=== PATIENT | female | born 1970 | race Caucasian/White ===

== ENCOUNTER → 2017-02-11 | Outpatient (CLI) | payer BC ==
[~2017-02-11] MED LIST: AZIT-21 PO; CEFP500T4 PO
--- NOTE | 2017-02-12 08:57 | Diagnostic Imaging Report ---
Bilateral screening mammogram The current study was also evaluated with a Computer Aided Detection (CAD) system. INDICATION: Screening. No current complaints stated on the questionnaire. COMPARISON: 01/23/16 FINDINGS: The breasts are composed of heterogeneously dense parenchyma which may decrease mammographic sensitivity. There is no mass, architectural distortion or suspicious cluster of calcification identified. Allowing for technique and positional differences, no suspicious change is seen. IMPRESSION: Dense breasts with no definite change. ACR BI-RADS Category 2: Benign findings. Result letter will be mailed to the patient. Note: At least 10% of breast cancer is not imaged by mammography. Dictated by: Dictated on workstation # [id number]
== END ==
LOC: RAD 11:15
PROVIDERS: ATTEND Obstetrics & Gynecology
DX: Z12.31 Encounter for screening mammogram for malignant neoplasm of breast (principal)
CPT/HCPCS: 77067

== ENCOUNTER → 2018-02-12 | Outpatient (CLI) | payer BC ==
--- NOTE | 2018-02-12 12:52 | Diagnostic Imaging Report ---
INDICATION: Routine screening. COMPARISON: 02/11/2017 and 01/23/2016. TECHNIQUE: 2D and 3D bilateral screening mammography was performed with CAD. FINDINGS: Both breasts remain heterogeneously dense, limiting the sensitivity of mammography. No mass or malignant appearing microcalcifications are seen. The axillae are unremarkable. IMPRESSION: No mammographic features suspicious for malignancy are identified. ACR BI-RADS Category 1: Negative. Result letter will be mailed to the patient. Note: At least 10% of breast cancer is not imaged by mammography. Dictated by: Dictated on workstation # [id number]
== END ==
LOC: RAD 11:05
PROVIDERS: ATTEND Obstetrics & Gynecology
DX: Z12.31 Encounter for screening mammogram for malignant neoplasm of breast (principal)
CPT/HCPCS: 77067

== ENCOUNTER → 2019-03-25 | Outpatient (CLI) | payer BC ==
--- NOTE | 2019-03-26 12:32 | Diagnostic Imaging Report ---
INDICATION: Routine screening. COMPARISON: Comparison is made with prior mammograms from 02/12/2018 and 02/11/2017. TECHNIQUE: 2-D and 3-D bilateral screening mammography was performed. The current study was also evaluated with a Computer Aided Detection (CAD) system. 3-D tomosynthesis was also performed and reviewed. FINDINGS: Both breasts remain heterogeneously dense, limiting the sensitivity of mammography. The parenchymal pattern is stable. No mass or malignant appearing microcalcifications are seen. The axillae are unremarkable. IMPRESSION: No mammographic features suspicious for malignancy are identified. ACR BI-RADS Category 1: Negative. Result letter will be mailed to the patient. Note: At least 10% of breast cancer is not imaged by mammography. Dictated by: Dictated on workstation # [id number]
== END ==
LOC: RAD 14:27
PROVIDERS: ATTEND Nurse Practitioner
DX: Z12.31 Encounter for screening mammogram for malignant neoplasm of breast (principal)
CPT/HCPCS: 77067

== ENCOUNTER → 2020-05-25 | Outpatient (CLI) | payer BC ==
--- NOTE | 2020-05-25 10:04 | Diagnostic Imaging Report ---
INDICATION: Routine screening. Comparison is made with prior mammogram 03/25/2019 and 02/12/2018. 2-D and 3-D bilateral screening mammography was performed with CAD. Both breasts are heterogeneously dense, limiting the sensitivity of mammography. The parenchymal pattern is stable. No discrete mass or malignant appearing microcalcifications are seen. Axillae are unremarkable. IMPRESSION: BI-RADS Category 1 No mammographic features suspicious for malignancy are identified. ACR BI-RADS Category 1: Negative. Result letter will be mailed to the patient. Note: At least 10% of breast cancer is not imaged by mammography. Dictated by: Dictated on workstation # [id number]
== END ==
LOC: RAD 07:45
PROVIDERS: ATTEND Nurse Practitioner
DX: Z12.31 Encounter for screening mammogram for malignant neoplasm of breast (principal)
CPT/HCPCS: 77063; 77067

== ENCOUNTER 2021-03-08 17:16 | Emergency (ER) | payer BC ==
[~2021-03-08] VITALS: Ht 167 cm; Wt 63.0 kg
[2021-03-08 17:50] LABS: BASOPHILS # (AUTO) 0.1 10^3/uL (0.0-0.1); BASOPHILS % (AUTO) 1 % (0-10); EOSINOPHILS # (AUTO) 0.1 10^3/uL (0.0-0.3); EOSINOPHILS % (AUTO) 2 % (0-10); HEMATOCRIT 41 % (35-52); LYMPHOCYTES % (AUTO) 38 % (12-44); MEAN CORPUSCULAR HEMOGLOBIN 33 pg (25-34); MEAN CORPUSCULAR HGB CONC 34 g/dL (32-36); MEAN CORPUSCULAR VOLUME 98 fL (80-99); MEAN PLATELET VOLUME 10.1 fL (9.0-12.2); MONOCYTES # (AUTO) 0.5 X 10^3 (0.0-1.0); MONOCYTES % (AUTO) 7 % (0-12); NEUTROPHILS # (AUTO) 4.2 X 10^3 (1.8-7.8); NEUTROPHILS % (AUTO) 53 % (42-75); PLATELET COUNT 237 10^3/uL (130-400)
--- NOTE | 2021-03-08 17:51 | ED GU-Female ---
General Chief Complaint: Abdominal/GI Problems Stated Complaint: STOMACH PAIN Nursing Triage Note: ARRIVED VIA AMB WITH COMPLAINTS OF LEFT SIDED FLANK PAIN STARTING THIS AM. DENIES N/V/D Source: patient Exam Limitations: no limitations History of Present Illness Date Seen by Provider: Mar 08, 2021 Time Seen by Provider: 17:49 Initial Comments To ER with severe left flank pain this began mildly this morning and got progressively worse. History of kidney stones and this feels similar. Timing/Duration: just prior to arrival Severity/Quality: moderate Location: left flank Radiation: none Activities at Onset: none Prior Genitourinary Problems: none Associated Symptoms: denies symptoms Allergies and Home Medications Allergies Coded Allergies: Penicillins (Verified Allergy, Unknown, 12/09/12) Home Medications Cefuroxime Axetil 250 Mg Tablet, 250 MG PO BID Prescribed by: MAY GALLARDO on 03/08/211915 Ketorolac Tromethamine 10 Mg Tablet, 10 MG PO TID Prescribed by: MAY GALLARDO on 03/08/211914 Oxycodone HCl/Acetaminophen 1 Each Tablet, 1 TAB PO Q4H PRN for PAIN-MODERATE Prescribed by: MAY GALLARDO on 03/08/211914 Tamsulosin HCl 0.4 Mg Cap, 0.4 MG PO DAILY Prescribed by: MAY GALLARDO on 03/08/211914 Patient Home Medication List Home Medication List Reviewed: Yes Review of Systems Review of Systems Constitutional: see HPI EENTM: see HPI Respiratory: no symptoms reported Cardiovascular: no symptoms reported Genitourinary: see HPI Musculoskeletal: no symptoms reported Skin: no symptoms reported Psychiatric/Neurological: No Symptoms Reported Endocrine: No Symptoms Reported Past Tcjgzuk-Wykarp-Dpfltc Hx Patient Social History Substance use?: No Past Medical History Reproductive Disorders: No Kidney Stones Physical Exam Vital Signs Vital Signs - First Documented 03/08/21 17:25 Temp 36.8 Pulse 54 Resp 16 B/P (MAP) 143/85 (104) Pulse Ox 97 O2 Delivery Room Air Capillary Refill : Less Than 3 Seconds Height, Weight, BMI Height: '" Weight: lbs. oz. kg; 22.00 BMI Method:Stated General Appearance: WD/WN, moderate distress HEENT: PERRL/EOMI, normal ENT inspection Respiratory: no respiratory distress, no accessory muscle use Gastrointestinal: normal bowel sounds, soft Back: CVA tenderness (L) Extremities: normal range of motion, non-tender Neurologic/Psychiatric: alert, normal mood/affect, oriented x 3 Skin: normal color, warm/dry Progress/Results/Core Measures Suspected Sepsis SIRS Temperature: Pulse: 54 Respiratory Rate: 16 Laboratory Tests 03/08/21 17:30: White Blood Count 8.0 Blood Pressure 143 /85 Mean: 104 Laboratory Tests 03/08/21 17:30: Creatinine 0.86, Platelet Count 237 Results/Orders Lab Results Laboratory Tests Test 03/08/21 17:30 03/08/21 17:35 Range/Units White Blood Count 8.0 4.3-11.0 10^3/uL Red Blood Count 4.19 3.80-5.11 10^6/uL Hemoglobin 14.0 11.5-16.0 g/dL Hematocrit 41 35-52 % Mean Corpuscular Volume 98 80-99 fL Mean Corpuscular Hemoglobin 33 25-34 pg Mean Corpuscular Hemoglobin Concent 34 32-36 g/dL Red Cell Distribution Width 11.9 10.0-14.5 % Platelet Count 237 130-400 10^3/uL Mean Platelet Volume 10.1 9.0-12.2 fL Immature Granulocyte % (Auto) 0 % Neutrophils (%) (Auto) 53 42-75 % Lymphocytes (%) (Auto) 38 12-44 % Monocytes (%) (Auto) 7 0-12 % Eosinophils (%) (Auto) 2 0-10 % Basophils (%) (Auto) 1 0-10 % Neutrophils # (Auto) 4.2 1.8-7.8 X 10^3 Lymphocytes # (Auto) 3.0 1.0-4.0 X 10^3 Monocytes # (Auto) 0.5 0.0-1.0 X 10^3 Eosinophils # (Auto) 0.1 0.0-0.3 10^3/uL Basophils # (Auto) 0.1 0.0-0.1 10^3/uL Immature Granulocyte # (Auto) 0.0 0.0-0.1 10^3/uL Sodium Level 141 135-145 MMOL/L Potassium Level 4.3 3.6-5.0 MMOL/L Chloride Level 106 98-107 MMOL/L Carbon Dioxide Level 25 21-32 MMOL/L Anion Gap 10 5-14 MMOL/L Blood Urea Nitrogen 19 H 7-18 MG/DL Creatinine 0.86 0.60-1.30 MG/DL Estimat Glomerular Filtration Rate > 60 BUN/Creatinine Ratio 22 Glucose Level 97 70-105 MG/DL Calcium Level 9.2 8.5-10.1 MG/DL Urine Color YELLOW Urine Clarity CLEAR Urine pH 7.5 5-9 Urine Specific [place] 1.020 1.016-1.022 Urine Protein NEGATIVE NEGATIVE Urine Glucose (UA) NEGATIVE NEGATIVE Urine Ketones 1+ H NEGATIVE Urine Nitrite NEGATIVE NEGATIVE Urine Bilirubin NEGATIVE NEGATIVE Urine Urobilinogen 0.2 < = 1.0 MG/DL Urine Leukocyte Esterase NEGATIVE NEGATIVE Urine RBC (Auto) 3+ H NEGATIVE Urine RBC 50-100 H /HPF Urine WBC NONE /HPF Urine Crystals NONE /LPF Urine Bacteria NEGATIVE /HPF Urine Casts NONE /LPF Urine Mucus NEGATIVE /LPF Urine Culture Indicated NO My Orders Orders - MAY GALLARDO APRN Abdomen/Kub 1view (03/08/21 17:35) Ua Culture If Indicated (03/08/21 17:35) Ed Iv/Invasive Line Start (03/08/21 17:35) Cbc With Automated Diff (03/08/21 17:35) Basic Metabolic Panel (03/08/21 17:35) Lactated Ringers (Lr 1000 Ml Iv Solution (03/08/21 18:00) Fentanyl Inj (Sublimaze Injection) (03/08/21 18:00) Ketorolac Injection (Toradol Injection) (03/08/21 18:00) Ct Abd/Pelvis Wo(Kidney Stone) (03/08/21 17:51) Hydromorphone Injection (Dilaudid Inject (03/08/21 19:15) Medications Given in ED Current Medications Medications Dose Ordered Sig/Francisco Route Start Time Stop Time Status Last Admin Dose Admin Fentanyl Citrate 50 mcg ONCE ONCE IVP 03/08/21 18:00 03/08/21 18:01 DC 03/08/21 17:54 50 MCG Hydromorphone HCl 0.5 mg ONCE ONCE IV 03/08/21 19:15 03/08/21 19:16 DC 03/08/21 19:17 0.5 MG Ketorolac Tromethamine 15 mg ONCE ONCE IVP 03/08/21 18:00 03/08/21 18:01 DC 03/08/21 17:55 15 MG Vital Signs/I&O 03/08/21 17:25 Temp 36.8 Pulse 54 Resp 16 B/P (MAP) 143/85 (104) Pulse Ox 97 O2 Delivery Room Air Capillary Refill : Less Than 3 Seconds Blood Pressure Mean: 104 Diagnostic Imaging Diagonstic Imaging: CT Comments NAME: ESME ESPINOSA REC#: [id number] PT STATUS: REG ER : 1970 PHYSICIAN: MAY GALLARDO APRN ADMIT DATE: 03/08/21/ER Draft Date of Exam:03/08/21 CT ABD/PELVIS WO(KIDNEY STONE) Clinical indications: Patient with nausea and left flank pain. Patient has history of stones. Exam: CT exam of the abdomen and pelvis is performed without IV or oral contrast using stone protocol. Coronal and sagittal reformatted images were created. Auto Exposure Controls were utilized during the CT exam to meet ALARA standards for radiation dose reduction. Comparisons: CT scan of the abdomen and pelvis performed with contrast dated 07/15/2016. Findings: Again seen is a solid soft tissue nodule in the medial right lung base region which currently measures 2.2 cm x 1.9 cm compared to the prior study at 2.3 cm x 2.1 cm. There is mild bibasilar atelectasis. There are degenerative spurs involving the lower lumbar spine. There is left curvature of the lower lumbar spine. Again seen is a large single gallstone which has increased in size. This gallstone measures 2.5 cm in greatest axial dimension compared to the prior study measured at 1.9 cm. There is no other stone seen. The gallbladder is mildly fluid filled. There is no gallbladder wall thickening or pericholecystic fluid. There is no intrahepatic or extrahepatic ductal dilation. The liver, spleen, pancreas and adrenal glands are unremarkable. The right kidney is low-lying near the pelvis and is abnormally rotated. It is better seen on the prior study. There is no hydronephrosis or mass seen. There is a nonobstructive 1 to 2 mm stone involving the upper portion of the left kidney. This is not seen on the prior study. There is interval development of a 4 mm stone within the proximal left ureter in the region of the left UPJ. There is mild to moderate left hydronephrosis. There are no other urinary tract stones seen, as visualized. The bladder is fluid-filled and otherwise unremarkable. Uterus and adnexal structures show no significant abnormality. There is multiple phleboliths in the pelvis. There is no intestinal obstruction. The appendix is unremarkable. The cecum is low-lying in the upper pelvis region. There is no intra-abdominal free air or free fluid. The extra-abdominal and extra-pelvis soft tissue structures are unremarkable. Impression: 1: There is interval development of a 4 mm stone in the proximal left ureter near the UPJ. There is mild to moderate left hydronephrosis. There is another nonobstructive stone involving the left upper kidney region. 2: Cholelithiasis with increased size of a single gallstone noted. There is no CT evidence of cholecystitis. 3: Stable size of the soft tissue nodule in the medial right lung base. 4: The remainder of this exam shows no significant interval change compared to the prior study of comparison. Dictated on workstation # [id number] Dict: 03/08/211828 Trans: 03/08/[address] [facility] [id number] Interpreted by: KHARI GRACIA MD Electronically signed by: Departure Communication (Admissions) NAME: ESME ESPINOSA [facility] REC#: [id number] PT STATUS: REG ER : 1970 PHYSICIAN: MAY GALLARDO APRN ADMIT DATE: 03/08/21/ER Draft Date of Exam:03/08/21 CT ABD/PELVIS WO(KIDNEY STONE) Clinical indications: Patient with nausea and left flank pain. Patient has history of stones. Exam: CT exam of the abdomen and pelvis is performed without IV or oral contrast using stone protocol. Coronal and sagittal reformatted images were created. Auto Exposure Controls were utilized during the CT exam to meet ALARA standards for radiation dose reduction. Comparisons: CT scan of the abdomen and pelvis performed with contrast dated 07/15/2016. Findings: Again seen is a solid soft tissue nodule in the medial right lung base region which currently measures 2.2 cm x 1.9 cm compared to the prior study at 2.3 cm x 2.1 cm. There is mild bibasilar atelectasis. There are degenerative spurs involving the lower lumbar spine. There is left curvature of the lower lumbar spine. Again seen is a large single gallstone which has increased in size. This gallstone measures 2.5 cm in greatest axial dimension compared to the prior study measured at 1.9 cm. There is no other stone seen. The gallbladder is mildly fluid filled. There is no gallbladder wall thickening or pericholecystic fluid. There is no intrahepatic or extrahepatic ductal dilation. The liver, spleen, pancreas and adrenal glands are unremarkable. The right kidney is low-lying near the pelvis and is abnormally rotated. It is better seen on the prior study. There is no hydronephrosis or mass seen. There is a nonobstructive 1 to 2 mm stone involving the upper portion of the left kidney. This is not seen on the prior study. There is interval development of a 4 mm stone within the proximal left ureter in the region of the left UPJ. There is mild to moderate left hydronephrosis. There are no other urinary tract stones seen, as visualized. The bladder is fluid-filled and otherwise unremarkable. Uterus and adnexal structures show no significant abnormality. There is multiple phleboliths in the pelvis. There is no intestinal obstruction. The appendix is unremarkable. The cecum is low-lying in the upper pelvis region. There is no intra-abdominal free air or free fluid. The extra-abdominal and extra-pelvis soft tissue structures are unremarkable. Impression: 1: There is interval development of a 4 mm stone in the proximal left ureter near the UPJ. There is mild to moderate left hydronephrosis. There is another nonobstructive stone involving the left upper kidney region. 2: Cholelithiasis with increased size of a single gallstone noted. There is no CT evidence of cholecystitis. 3: Stable size of the soft tissue nodule in the medial right lung base. 4: The remainder of this exam shows no significant interval change compared to the prior study of comparison. Dictated on workstation # [id number] Dict: 03/08/21 1829 Trans: 03/08/[address] [facility] [id number] Interpreted by: KHARI GRACIA MD Electronically signed by: Impression Primary Impression: Left ureteral stone Disposition: 01 HOME, SELF-CARE Condition: Stable Departure-Patient Inst. Decision time for Depature: 18:00 Referrals: NO,LOCAL PHYSICIAN (PCP/Family) Primary Care Physician Patient Instructions: Kidney Stone, Adult ED Add. Discharge Instructions: 1. Antibiotics pain medication as directed follow-up with Dr. Mosher. Call tomorrow to make an appointment to be seen. All discharge instructions reviewed with patient and/or family. Voiced understanding. Scripts Cefuroxime Axetil (Cefuroxime) 250 Mg Tablet 250 MG PO BID, #10 TAB Prov: MAY GALLARDO APRN 03/08/21 Oxycodone HCl/Acetaminophen (Percocet 5-325 mg Tablet) 1 Each Tablet 1 TAB PO Q4H PRN for PAIN-MODERATE MDD 6 for 7 Days, #20 TAB Prov: MAY GALLARDO APRN 03/08/21 Ketorolac Tromethamine (Ketorolac Tromethamine) 10 Mg Tablet 10 MG PO TID, #9 TAB Prov: MAY GALLARDO APRN 03/08/21 Tamsulosin HCl (Flomax) 0.4 Mg Cap 0.4 MG PO DAILY, #14 CAP Prov: MAY GALLARDO APRN 03/08/21 Work/School Note: Work Release Form Date Seen in the Emergency Department: Mar 08, 2021 Return to Work: Mar 11, 2021 Copy Copies To 1: KATIE MOSHER MD, PETER J APRN Mar 08, 2021 17:51
[2021-03-08 17:52] LABS: CHLORIDE 106 MMOL/L (98-107); POTASSIUM 4.3 MMOL/L (3.6-5.0); SODIUM 141 MMOL/L (135-145)
[2021-03-08 17:54] LABS: CALCIUM 9.2 MG/DL (8.5-10.1); GLUCOSE 97 MG/DL (70-105)
[2021-03-08 17:56] LABS: CARBON DIOXIDE 25 MMOL/L (21-32)
[2021-03-08 17:58] LABS: CREATININE SERUM 0.86 MG/DL (0.60-1.30); GFR ESTIMATED > 60
[2021-03-08 17:59] LABS: BUN/CREATININE RATIO 22
[2021-03-08] MEDS ORDERED: KETOROLAC 30 MG/ML VIAL IVP ONE (18:00)
[2021-03-08] MEDS ORDERED: LACTATED RINGERS 1,000 ML IV SCH (18:00)
[2021-03-08] MEDS ORDERED: fentaNYL INJ 100 MCG/2 ML AMP IVP ONE (18:00)
--- NOTE | 2021-03-08 18:33 | Diagnostic Imaging Report ---
EXAM: Abdomen/KUB 1 view. INDICATION: Left flank pain. COMPARISON: Abdominal radiograph 03/26/2007. FINDINGS: Large amount of stool throughout the ascending and transverse colon. Nonspecific small bowel gas pattern. No suspicious radiopaque densities. IMPRESSION: 1. No acute radiographic findings in the abdomen. 2. Large amount of stool throughout the ascending and transverse colon. Dictated by: Dictated on workstation # [id number]
[2021-03-08 18:48] LABS: BILIRUBIN,URINE NEGATIVE (NEGATIVE); CLARITY,URINE CLEAR; COLOR,URINE YELLOW; GLUCOSE, URINE (UA) NEGATIVE (NEGATIVE); KETONES,URINE 1+ (NEGATIVE); LEUKOCYTE ESTERASE ,URINE NEGATIVE (NEGATIVE); NITRITE,URINE NEGATIVE (NEGATIVE); PH,URINE 7.5 (5-9); PROTEIN,URINE NEGATIVE (NEGATIVE)
--- NOTE | 2021-03-08 19:00 | Diagnostic Imaging Report ---
Clinical indications: Patient with nausea and left flank pain. Patient has history of stones. Exam: CT exam of the abdomen and pelvis is performed without IV or oral contrast using stone protocol. Coronal and sagittal reformatted images were created. Auto Exposure Controls were utilized during the CT exam to meet ALARA standards for radiation dose reduction. Comparisons: CT scan of the abdomen and pelvis performed with contrast dated 07/15/2016. Findings: Again seen is a solid soft tissue nodule in the medial right lung base region which currently measures 2.2 cm x 1.9 cm compared to the prior study at 2.3 cm x 2.1 cm. There is mild bibasilar atelectasis. There are degenerative spurs involving the lower lumbar spine. There is left curvature of the lower lumbar spine. Again seen is a large single gallstone which has increased in size. This gallstone measures 2.5 cm in greatest axial dimension compared to the prior study measured at 1.9 cm. There is no other stone seen. The gallbladder is mildly fluid filled. There is no gallbladder wall thickening or pericholecystic fluid. There is no intrahepatic or extrahepatic ductal dilation. The liver, spleen, pancreas and adrenal glands are unremarkable. The right kidney is low-lying near the pelvis and is abnormally rotated. It is better seen on the prior study. There is no hydronephrosis or mass seen. There is a nonobstructive 1 to 2 mm stone involving the upper portion of the left kidney. This is not seen on the prior study. There is interval development of a 4 mm stone within the proximal left ureter in the region of the left UPJ. There is mild to moderate left hydronephrosis. There are no other urinary tract stones seen, as visualized. The bladder is fluid-filled and otherwise unremarkable. Uterus and adnexal structures show no significant abnormality. There is multiple phleboliths in the pelvis. There is no intestinal obstruction. The appendix is unremarkable. The cecum is low-lying in the upper pelvis region. There is no intra-abdominal free air or free fluid. The extra-abdominal and extra-pelvis soft tissue structures are unremarkable. Impression: 1: There is interval development of a 4 mm stone in the proximal left ureter near the UPJ. There is mild to moderate left hydronephrosis. There is another nonobstructive stone involving the left upper kidney region. 2: Cholelithiasis with increased size of a single gallstone noted. There is no CT evidence of cholecystitis. 3: Stable size of the soft tissue nodule in the medial right lung base. 4: The remainder of this exam shows no significant interval change compared to the prior study of comparison. Dictated by: Dictated on workstation # [id number]
[2021-03-08 19:13] LABS: BACTERIA,URINE NEGATIVE /HPF; RBC,URINE 50-100 /HPF
[2021-03-08] MEDS ORDERED: KETO10TA PO (19:15)
[2021-03-08] MEDS ORDERED: HYDROmorphone 2 MG/ML VIAL (DILAUDID) IV ONE (19:15)
[2021-03-08] MEDS ORDERED: OXYC-199 PO (19:15)
[2021-03-08] MEDS ORDERED: TMSL.4C PO (19:15)
[2021-03-08] MEDS ORDERED: CEFU250T80 PO (19:16)
[2021-03-08] MEDS ORDERED: RX-OXYCODONE/APAP 5-325 MG #4 TAB PK PO PRN (20:00)
[2021-03-08] MEDS ORDERED: TAMSULOSIN 0.4 MG (FLOMAX) CAP PO SCH (20:00)
[2021-03-08 20:05] VITALS: BP 106/69
== END 2021-03-08 20:03 | disposition home or self-care (01) ==
LOC: EDUNIT# 17:16 → ER 17:18
DX: N13.2 Hydronephrosis with renal and ureteral calculous obstruction (principal)
CPT/HCPCS: 36415; 74018; 74176; 80048; 81000; 85025

== ENCOUNTER 2021-03-10 13:13 | Emergency (ER) | payer BC ==
[~2021-03-10] VITALS: Ht 167 cm; Wt 63.0 kg
[~2021-03-10 13:13] MED LIST changes: +CEFU250T80 PO; +KETO10TA PO; +OXYC-199 PO; +TMSL.4C PO
[2021-03-10] MEDS ORDERED: HYDROmorphone 2 MG/ML VIAL (DILAUDID) IV ONE (14:15)
[2021-03-10] MEDS ORDERED: KETOROLAC 30 MG/ML VIAL IVP ONE (14:15)
[2021-03-10] MEDS ORDERED: ONDANSETRON 4 MG/2 ML (SDV) Z0FRAN IVP ONE (14:15)
[2021-03-10] MEDS ORDERED: NS IV 1000 ML 1,000 ML IV SCH (14:15)
--- NOTE | 2021-03-10 14:28 | ED General ---
General Stated Complaint: KIDNEY STONES, ALLERGIC TO MEDS Source of Information: Patient Exam Limitations: No Limitations History of Present Illness Date Seen by Provider: Mar 10, 2021 Time Seen by Provider: 14:28 Initial Comments To ER with left flank pain. She was seen here a few days ago diagnosed with a 4 mm stone in the proximal left ureter. Sent home with Percocet which did not alleviate her symptoms. She states that she has been vomiting each time that she takes 1 and unable to keep it down. Timing/Duration: 2-3 Days Severity: Moderate, Severe Associated Systoms: Nausea/Vomiting Allergies and Home Medications Allergies Coded Allergies: Penicillins (Verified Allergy, Unknown, 12/09/12) Home Medications Cefuroxime Axetil 250 Mg Tablet, 250 MG PO BID Prescribed by: MAY GALLARDO on 03/08/211915 Hydrocodone/Acetaminophen 1 Each Tablet, 1-2 TAB PO Q4H PRN for PAIN-MODERATE (5-7) Prescribed by: MAY GALLARDO on 03/10/211818 Ketorolac Tromethamine 10 Mg Tablet, 10 MG PO TID Prescribed by: MAY GALLARDO on 03/08/211914 Ondansetron 8 Mg Tab.rapdis, 8 MG PO Q6H PRN for PAIN-SEVERE (8-10) Prescribed by: MAY GALLARDO on 03/10/211817 Oxycodone HCl/Acetaminophen 1 Each Tablet, 1 TAB PO Q4H PRN for PAIN-MODERATE Prescribed by: MAY GALLARDO on 03/08/211914 Tamsulosin HCl 0.4 Mg Cap, 0.4 MG PO DAILY Prescribed by: MAY GALLARDO on 03/08/211914 Patient Home Medication List Home Medication List Reviewed: Yes Review of Systems Review of Systems Constitutional: see HPI EENTM: see HPI Respiratory: no symptoms reported Cardiovascular: no symptoms reported Genitourinary: no symptoms reported Musculoskeletal: no symptoms reported Skin: no symptoms reported Psychiatric/Neurological: No Symptoms Reported Hematologic/Lymphatic: No Symptoms Reported Immunological/Allergic: no symptoms reported Past Glblcpl-Cnxovp-Wigdsb Hx Past Medical History Reproductive Disorders: No Kidney Stones Physical Exam Vital Signs Capillary Refill : Height, Weight, BMI Height: '" Weight: lbs. oz. kg; 22.00 BMI Method:Stated General Appearance: WD/WN, Mild Distress Eyes: Bilateral Eye Normal Inspection, Bilateral Eye PERRL, Bilateral Eye EOMI Respiratory: No Accessory Muscle Use, No Respiratory Distress Cardiovascular: Regular Rate, Rhythm, Normal Peripheral Pulses Gastrointestinal: Normal Bowel Sounds, Non Tender, Soft Extremity: Normal Capillary Refill, Normal Inspection Neurologic/Psychiatric: Alert, Oriented x3 Progress/Results/Core Measures Suspected Sepsis SIRS Temperature: Pulse: Respiratory Rate: Laboratory Tests 03/10/21 14:50: White Blood Count 10.8 Blood Pressure / Mean: Laboratory Tests 03/10/21 14:50: Creatinine 1.13, Platelet Count 190, Total Bilirubin 0.6 Results/Orders Lab Results Laboratory Tests Test 03/10/21 14:50 Range/Units White Blood Count 10.8 4.3-11.0 10^3/uL Red Blood Count 3.86 3.80-5.11 10^6/uL Hemoglobin 12.8 11.5-16.0 g/dL Hematocrit 38 35-52 % Mean Corpuscular Volume 98 80-99 fL Mean Corpuscular Hemoglobin 33 25-34 pg Mean Corpuscular Hemoglobin Concent 34 32-36 g/dL Red Cell Distribution Width 11.9 10.0-14.5 % Platelet Count 190 130-400 10^3/uL Mean Platelet Volume 10.3 9.0-12.2 fL Immature Granulocyte % (Auto) 2 % Neutrophils (%) (Auto) 74 42-75 % Lymphocytes (%) (Auto) 17 12-44 % Monocytes (%) (Auto) 6 0-12 % Eosinophils (%) (Auto) 1 0-10 % Basophils (%) (Auto) 1 0-10 % Neutrophils # (Auto) 8.0 H 1.8-7.8 10^3/uL Lymphocytes # (Auto) 1.8 1.0-4.0 10^3/uL Monocytes # (Auto) 0.7 0.0-1.0 10^3/uL Eosinophils # (Auto) 0.1 0.0-0.3 10^3/uL Basophils # (Auto) 0.1 0.0-0.1 10^3/uL Immature Granulocyte # (Auto) 0.2 H 0.0-0.1 10^3/uL Sodium Level 139 135-145 MMOL/L Potassium Level 3.7 3.6-5.0 MMOL/L Chloride Level 103 98-107 MMOL/L Carbon Dioxide Level 25 21-32 MMOL/L Anion Gap 11 5-14 MMOL/L Blood Urea Nitrogen 19 H 7-18 MG/DL Creatinine 1.13 0.60-1.30 MG/DL Estimat Glomerular Filtration Rate 51 BUN/Creatinine Ratio 17 Glucose Level 98 70-105 MG/DL Calcium Level 8.9 8.5-10.1 MG/DL Corrected Calcium 9.1 8.5-10.1 MG/DL Total Bilirubin 0.6 0.1-1.0 MG/DL Aspartate Amino Transf (AST/SGOT) 15 5-34 U/L Alanine Aminotransferase (ALT/SGPT) 11 0-55 U/L Alkaline Phosphatase 71 40-136 U/L Total Protein 6.5 6.4-8.2 GM/DL Albumin 3.7 3.2-4.5 GM/DL My Orders Orders - MAY GALLARDO APRN Cbc With Automated Diff (03/10/21 13:54) Comprehensive Metabolic Panel (03/10/21 13:54) Ua Culture If Indicated (03/10/21 13:55) Abdomen/Kub 1view (03/10/21 14:09) Ketorolac Injection (Toradol Injection) (03/10/21 14:15) Ondansetron Injection (Zofran Injectio (03/10/21 14:15) Hydromorphone Injection (Dilaudid Inject (03/10/21 14:15) Ns Iv 1000 Ml (Sodium Chloride 0.9%) (03/10/21 14:15) Hydrocodone/Apap 5/325 Tablet (Lortab 5 (03/10/21 16:15) Lactated Ringers (Lr 1000 Ml Iv Solution (03/10/21 16:45) Lactated Ringers (Lr 1000 Ml Iv Solution (03/10/21 16:36) Rx-Hydrocodone/Apap 5-325 Mg (Rx-Vicodin (03/10/21 18:00) Rx-Ondansetron Po (Rx-Zofran Po) (03/10/21 17:58) Medications Given in ED Current Medications Medications Dose Ordered Sig/Francisco Route Start Time Stop Time Status Last Admin Dose Admin Acetaminophen/ Hydrocodone Bitart 1 ea ONCE ONCE PO 03/10/21 16:15 03/10/21 16:16 DC 03/10/21 16:12 1 EA Hydromorphone HCl 0.5 mg ONCE ONCE IV 03/10/21 14:15 03/10/21 14:16 DC 03/10/21 14:43 0.5 MG Ketorolac Tromethamine 15 mg ONCE ONCE IVP 03/10/21 14:15 03/10/21 14:16 DC 03/10/21 14:42 15 MG Ondansetron HCl 4 mg ONCE ONCE IVP 03/10/21 14:15 03/10/21 14:16 DC 03/10/21 14:42 4 MG Vital Signs/I&O Capillary Refill : Departure Communication (Admissions) 1630-'s pain is well controlled at this time. 1817-Pain is still well controlled. She seems to have tolerated the hydrocodone much better than the Percocet. We will send her home with this plan with return precautions. Impression Primary Impression: Left ureteral stone Disposition: HOME, SELF-CARE Condition: Stable Departure-Patient Inst. Decision time for Depature: 18:00 Referrals: NO,LOCAL PHYSICIAN (PCP/Family) Primary Care Physician Patient Instructions: Kidney Stone, Adult ED Scripts Ondansetron (Ondansetron Odt) 8 Mg Tab.rapdis 8 MG PO Q6H PRN for PAIN-SEVERE (8-10), #10 TAB Prov: MAY GALLARDO APRN 03/10/21 Hydrocodone/Acetaminophen (Hydrocodone-Acetamin 5-325 mg) 1 Each Tablet 1-2 TAB PO Q4H PRN for PAIN-MODERATE (5-7), #20 TAB Prov: MAY GALLARDO APRN 03/10/21 MAY GALLARDO [employer] Mar 10, 2021 14:28
--- NOTE | 2021-03-10 14:48 | Diagnostic Imaging Report ---
REASON FOR EXAM: Left flank pain. COMPARISON: 03/08/2021. TECHNIQUE: Frontal supine view of the abdomen FINDINGS: There is interval decrease in stool burden in the colon with a residual moderate amount of stool remaining. No evidence of small bowel obstruction. No large collections of free intraperitoneal air. Gallstone is again visualized overlying the right upper quadrant. Multiple phleboliths are seen in the pelvis. IMPRESSION: Interval decrease in stool burden with residual moderate amount of stool remaining. Dictated by: Dictated on workstation # [id number]
[2021-03-10 15:00] LABS: BASOPHILS # (AUTO) 0.1 10^3/uL (0.0-0.1); BASOPHILS % (AUTO) 1 % (0-10); EOSINOPHILS # (AUTO) 0.1 10^3/uL (0.0-0.3); EOSINOPHILS % (AUTO) 1 % (0-10); HEMATOCRIT 38 % (35-52); HEMOGLOBIN 12.8 g/dL (11.5-16.0); LYMPHOCYTES # (AUTO) 1.8 10^3/uL (1.0-4.0); LYMPHOCYTES % (AUTO) 17 % (12-44); MEAN CORPUSCULAR HEMOGLOBIN 33 pg (25-34); MEAN CORPUSCULAR HGB CONC 34 g/dL (32-36); MEAN CORPUSCULAR VOLUME 98 fL (80-99); MEAN PLATELET VOLUME 10.3 fL (9.0-12.2); MONOCYTES # (AUTO) 0.7 10^3/uL (0.0-1.0); MONOCYTES % (AUTO) 6 % (0-12); NEUTROPHILS % (AUTO) 74 % (42-75); PLATELET COUNT 190 10^3/uL (130-400); WHITE BLOOD COUNT 10.8 10^3/uL (4.3-11.0)
[2021-03-10 15:06] LABS: ALBUMIN 3.7 GM/DL (3.2-4.5); POTASSIUM 3.7 MMOL/L (3.6-5.0)
[2021-03-10 15:07] LABS: CALCIUM 8.9 MG/DL (8.5-10.1)
[2021-03-10 15:09] LABS: TOTAL PROTEIN 6.5 GM/DL (6.4-8.2)
[2021-03-10 15:10] LABS: BILIRUBIN,TOTAL 0.6 MG/DL (0.1-1.0)
[2021-03-10 15:12] LABS: CREATININE SERUM 1.13 MG/DL (0.60-1.30)
[2021-03-10] MEDS ORDERED: HYDROcodone/APAP 5 MG/325 MG (LORTAB) TAB PO ONE (16:15)
[2021-03-10] MEDS ORDERED: LACTATED RINGERS 1,000 ML IV ONE (16:36)
[2021-03-10] MEDS ORDERED: LACTATED RINGERS 1,000 ML IV SCH (16:45)
[2021-03-10] MEDS ORDERED: RX-ONDANSETRON 4 MG ODT (ZOFRAN) PPK #4 PO STA (17:58)
[2021-03-10] MEDS ORDERED: ONDA8TAB13 PO (18:18)
[2021-03-10] MEDS ORDERED: ACHD5005 PO (18:18)
[2021-03-10 18:36] VITALS: BP 115/71
[2021-03-10 18:36] LABS: BILIRUBIN,URINE NEGATIVE (NEGATIVE); CLARITY,URINE CLOUDY; COLOR,URINE ORANGE; GLUCOSE, URINE (UA) NEGATIVE (NEGATIVE); KETONES,URINE TRACE (NEGATIVE); LEUKOCYTE ESTERASE ,URINE NEGATIVE (NEGATIVE); NITRITE,URINE NEGATIVE (NEGATIVE); PH,URINE 5.5 (5-9); PROTEIN,URINE TRACE (NEGATIVE)
[2021-03-10 18:50] LABS: BACTERIA,URINE FEW /HPF
== END 2021-03-10 18:36 | disposition home or self-care (01) ==
LOC: EDUNIT# 13:13 → ER 13:16
DX: N20.1 Calculus of ureter (principal)
CPT/HCPCS: 36415; 74018; 80053; 81000; 85025

== ENCOUNTER → 2021-03-14 | Outpatient (CLI) | payer BC ==
[~2021-03-14] MED LIST changes: +ACHD5005 PO; +ONDA8TAB13 PO
--- NOTE | 2021-03-14 13:33 | Diagnostic Imaging Report ---
INDICATION: Left ureteral calculus. Compared with a KUB performed 03/10 and correlated with abdominal pelvic CT dated 03/08. Large lamellated gallstone in the right upper quadrant noted. There is an elevated colonic fecal load compatible with constipation. This limits sensitivity for evaluating renal calculus disease. There are multiple pelvic phleboliths, largely unchanged however new calcification in the left lower hemipelvis may reflect interval migration of the previous left ureteral stone at CT that was seen at the top of the iliac crest at today's exam is likely at the level of the distal ureter approaching the UVJ. IMPRESSION: Left ureteral calculus is believed migrated to the distal ureter, colonic constipation and cholelithiasis noted. Dictated by: Dictated on workstation # [id number]
== END ==
LOC: RAD 12:46
PROVIDERS: ATTEND Urology
DX: N20.1 Calculus of ureter (principal)
CPT/HCPCS: 74018

== ENCOUNTER 2021-03-16 05:57 | Outpatient (CLI) | payer BC ==
[~2021-03-16] VITALS: Ht 167 cm; Wt 62.7 kg
[2021-09-19] MEDS ORDERED: L.AC1CAP6 PO (17:27)
[2021-09-19] MEDS ORDERED: MULT-974 PO (17:27)
[2021-09-19] MEDS ORDERED: ASPI-789 PO (17:27)
== END 2021-09-19 17:34 | disposition home or self-care (01) ==
LOC: PREOP 05:57
PROVIDERS: ATTEND Urology
DX: Z01.818 Encounter for other preprocedural examination (principal)

== ENCOUNTER → 2021-07-27 | Outpatient (CLI) | payer BC ==
--- NOTE | 2021-07-27 15:58 | Diagnostic Imaging Report ---
INDICATION: Routine screening. Comparison is made with prior mammogram 05/25/2020 and 03/25/2019. 2-D and 3-D bilateral screening mammography was performed with CAD. Both breasts are heterogeneously dense, limiting the sensitivity of mammography. No mass or malignant-appearing microcalcifications are seen. Axillae are unremarkable. IMPRESSION: BI-RADS Category 1 No mammographic features suspicious for malignancy are identified. ACR BI-RADS Category 1: Negative. Result letter will be mailed to the patient. Note: At least 10% of breast cancer is not imaged by mammography. Dictated by: Dictated on workstation # [id number]
== END ==
LOC: RAD 08:45
PROVIDERS: ATTEND Surgery
DX: Z12.31 Encounter for screening mammogram for malignant neoplasm of breast (principal)
CPT/HCPCS: 77063; 77067

== ENCOUNTER 2021-09-21 09:51 | Day surgery (SDC) | payer BC ==
[~2021-09-21] VITALS: Ht 167 cm; Wt 62.7 kg
[~2021-09-21 09:51] MED LIST changes: +ASPI-789 PO; +L.AC1CAP6 PO; +MULT-974 PO
[2021-09-21] MEDS ORDERED: LACTATED RINGERS 1,000 ML IV STA (09:58)
[2021-09-21] MEDS ORDERED: LIDOCAINE JELLY 2% 6 ML SYRINGE MM PRN (10:00)
[2021-09-21] MEDS ORDERED: LACTATED RINGERS 1,000 ML IV ONE (10:07)
[2021-09-21 10:10] VITALS: BP 107/73
[2021-09-21] MEDS ORDERED: MIDAZOLAM 2 MG/2 ML (VERSED) VIAL ONE (10:14)
[2021-09-21] MEDS ORDERED: PROPOFOL INJECTION 50 ML IV ONE (10:14)
[2021-09-21] MEDS ORDERED: NS IV 500 ML 500 ML IV ONE (10:15)
--- NOTE | 2021-09-21 10:25 | Progress Note-Pre Operative ---
Pre-Operative Progress Note H&P Reviewed The H&P was reviewed, patient examined and no changes noted. Date Seen by Provider: Sep 21, 2021 Time Seen by Provider: 10:00 Date H&P Reviewed: Sep 21, 2021 Time H&P Reviewed: 10:00 Pre-Operative Diagnosis: screening REX Cornejo MD Sep 21, 2021 10:25
--- NOTE | 2021-09-21 10:27 | Discharge Inst-Surgical ---
D/C Lap Instructions-MARISOL Follow Up Activity as tolerated High Fiber Diet 25g or more per day Avoid Alcohol, Caffeine, Spicy [place] and Acid foods. Drink 64 fluid oz or more of fluids per day. Symptoms to Report: Fever over 101 degree F, Nausea/Vomiting If any problems/questions: Contact your physician or go to Emergency Room REX DAMON MD Sep 21, 2021 10:27
[2021-09-21] MEDS ORDERED: ONDANSETRON 4 MG/2 ML (SDV) Z0FRAN IVP PRN (10:30)
[2021-09-21] MEDS ORDERED: ONDANSETRON 4 MG (ZOFRAN) ORAL DISSOLVE TAB PO PRN (10:30)
[2021-09-21 11:01] VITALS: BP 104/59
--- NOTE | 2021-09-21 11:03 | Progress Note-Post Operative ---
Post-Operative Progess Note Surgeon (s)/Chief Orthoptist (s) Surgeon REX DAMON MD Chief Orthoptist: none Pre-Operative Diagnosis screening colo Post-Operative Diagnosis normal colon and rectum Procedure & Operative Findings Date of Procedure 09/21/21 Procedure Performed/Findings colonoscopy Anesthesia Type mac Estimated Blood Loss Estimated blood loss (mL): minimal Specimens/Packing Specimens Removed none REX DAMON MD Sep 21, 2021 11:03
[2021-09-21 11:06] VITALS: BP 97/56
[2021-09-21 11:10] VITALS: BP 95/54
[2021-09-21 11:40] VITALS: BP 99/56
[2021-09-21 12:00] VITALS: BP 99/56
--- NOTE | 2021-09-21 13:19 | Anesthesia-General Post-Op ---
MAC Patient Condition Mental Status/LOC: Same as Preop Cardiovascular: Satisfactory Nausea/Vomiting: Absent Respiratory: Satisfactory Pain: Controlled Complications: Absent Post Op Complications Complications None Follow Up Care/Instructions Patient Instructions None needed. Anesthesiology Discharge Order Discharge Order Patient is doing well, no complaints, stable vital signs, no apparent adverse anesthesia problems. No complications reported per nursing. GAETANO TEJEDA CRNA Sep 21, 2021 13:19
--- NOTE | 2021-09-21 19:21 | OPERATIVE REPORT ---
DATE OF SERVICE: 09/21/2021 PREOPERATIVE DIAGNOSIS: Screening colonoscopy. POSTOPERATIVE DIAGNOSIS: Normal colon and rectum. PROCEDURE: Colonoscopy. SURGEON: Rex Damon MD ANESTHESIA: Monitored anesthesia care. ESTIMATED BLOOD LOSS: Minimal. FINDINGS: Same as postoperative diagnoses. DISPOSITION: The patient tolerated the procedure well. INDICATIONS: The patient is a 50-year-old female referred over to us for screening colonoscopy. She has not had a colonoscopy before in the past. She states that she is otherwise doing well, does not report any major issues with diarrhea nor constipation as well as no red blood per rectum nor any dark tarry stools. She also does not report any family history of colon cancer. DESCRIPTION OF PROCEDURE: The patient was brought to the endoscopy suite, laid in left lateral decubitus position. After adequate IV pain and sedative medications and monitored anesthesia care, a digital rectal examination was performed. No significant hemorrhoids identified. Normal sphincter tone was felt and there were no palpable masses. The endoscope was then intubated into the anus and rectum gently insufflated. The endoscope was then advanced through the valves of [place] of the rectum with no polyps or any neoplasms identified. The endoscope was then advanced through the sigmoid colon where no diverticulosis identified. We then proceeded to remainder of the descending, transverse and ascending colon to the cecum, which were normal. There were no polyps or any neoplasms identified throughout the colon or rectum. The endoscope was then slowly withdrawn while taking a second look and suctioning of residual air with no additional findings. The patient tolerated the procedure well. We will recommend the necessary lifestyle and dietary accommodation including incorporation of high fiber diet with at least 25 grams of fiber daily as well as significant amounts of water to promote soft stools on a daily basis and if she is asymptomatic, she does not need another colonoscopy for another 10 years. Job ID: [id number] DocumentID: [id number] Dictated Date: 09/21/2021 10:58:24 Manager Field Service Date: 09/21/2021 19:20:29 Dictated By: REX DAMON MD
== END 2021-09-21 12:00 | disposition home or self-care (01) ==
LOC: ENDO 09:51
PROVIDERS: ATTEND Surgery
DX: K59.00 Constipation, unspecified (principal); Z80.3 Family history of malignant neoplasm of breast; Z80.1 Family history of malignant neoplasm of trachea, bronchus and lung

== ENCOUNTER 2022-08-07 05:25 | Emergency (ER) | payer BC ==
[~2022-08-07 05:25] MED LIST changes: -ASPI-789 PO; +ASPI1TAB23 PO
--- NOTE | 2022-08-07 06:35 | ED EENT ---
History of Present Illness General Chief Complaint: Dental Problems/Pain Stated Complaint: RT SIDE OF MOUTH PAIN Nursing Triage Note: PT ARRIVAL TO ER VIA PRIVATE VEHICLE FROM HOME WITH COMPLAINT OF FACIAL SWELLING POST DENTAL SURGERY. PT STATES THAT SHE HAD A BONE GRAFT PROCEDURE DONE FRIDAY OF THIS WEEK IN [place]. PATIENT STATES THAT SHE WAS TOLD IT WOULD HAVE MINOR SWELLING AND SOME DISCOMFORT, BUT STATES THAT SHE BELIEVES ITS POSSIBLY INFECTED AND MORE PAINFUL/SWOLLEN THEN IT SHOULD BE. PT TOOK HYDROCODONE AT 0420 THIS AM. (VANNESSA HU) History of Present Illness Date Seen by Provider: Aug 07, 2022 Time Seen by Provider: 06:14 Initial Comments 51 yo female w no pertinent past medical hx presents to ED with chief complaint of right sided facial swelling post dental bone graft. Pt reports that she got a bone graft on her two front teeth on Friday. She had some lip swelling after the procedure but then on friday her swelling started to extend to the right side of her face. Has associated jaw pain, limited jaw movement, nausea, and RAMOS. Pt rates her pain as a 8/10 and has been taking the Z pack, dental rinse, and hydrocodeine as indicated with no relief of sx. Pt says she is on a soft foods diet but it has been difficult to eat. Last ate at 6pm. Reports that she previously got a more extensive dental bone graft back in March with no adverse effects or sx that she is currently experiencing. Denies any ear pain, vomiting, swelling anywhere else, CP, SOB. No other complaints. Location: mouth, facial, dental Prearrival Treatment: prescription meds (VANNESSA HU) Allergies and Home Medications Allergies Coded Allergies: Penicillins (Verified Allergy, Unknown, 12/09/12) acetaminophen (Verified Allergy, Unknown, 03/16/21) oxycodone (Verified Allergy, Unknown, 03/16/21) Patient Home Medication List Home Medication List Reviewed: Yes (VANNESSA HU) Aspirin/Acetaminophen/Caffeine (Excedrin Migraine Caplet) 1 Each Tablet, 2 EACH PO Q6-8HR PRN for Headache, (Reported) Entered as Reported by: AHMET ARMANDO on 09/19/211726 L.acidoph & Paracasei,B.lactis (Probiotic) 1 Each Capsule, 1 EACH PO DAILY, (Reported) Entered as Reported by: AHMET ARMANDO on 09/19/211726 Multivitamin (Multi-Vitamin Daily) 1 Each Tablet, 1 EACH PO, (Reported) Entered as Reported by: AHMET ARMANDO on 09/19/211726 Review of Systems Review of Systems Constitutional: no symptoms reported Eyes: No Symptoms Reported Nose: no symptoms reported Mouth: see HPI, pain, swelling Throat: no symptoms reported Respiratory: no symptoms reported Cardiovascular: no symptoms reported Gastrointestinal: nausea Musculoskeletal: no symptoms reported Skin: no symptoms reported Neurological: No Symptoms Reported Hematologic/Lymphatic: No Symptoms Reported Immunological/Allergic: no symptoms reported (VANNESSA HU) Past Fxjohmb-Fepurf-Mmmtgi Hx Patient Social History Tobacco Use?: No Use of E-Cig and/or Vaping dev: No Substance use?: No Alcohol Use?: No Pt feels they are or have been: No (VANNESSA HU) Immunizations Up To Date Influenza Vaccine Up-to-Date: No; Not Current First/Initial COVID19 Vaccinat: NO (VANNESSA HU) Seasonal Allergies Seasonal Allergies: Yes (VANNESSA HU) Past Medical History Surgeries: Yes (LITHOTRIPSY, C/S X2, EAR SURGERY X2 (CALCIUM BLOCK REMOVALS)) Section Respiratory: No Cardiac: No Neurological: Yes Reproductive Disorders: No Genitourinary: Yes Kidney Stones Gastrointestinal: Yes (CURRENT CONSTIPATION AND STOMACH PAIN) Chronic Constipation Musculoskeletal: No Endocrine: No Cancer: No Psychosocial: No Integumentary: No Blood Disorders: No (VANNESSA HU) Physical Exam Vital Signs Vital Signs - First Documented 08/07/22 05:34 Temp 36.4 Pulse 71 Resp 20 B/P (MAP) 99/68 (78) Pulse Ox 97 O2 Delivery Room Air (CLEMENCIA POLO MD) Height, Weight, BMI Height: '" Weight: lbs. oz. kg; 22.48 BMI Method:Stated General Appearance: WD/WN Eyes: bilateral eye normal inspection, bilateral eye PERRL, bilateral eye EOMI Ears: bilateral ear auricle normal Nose: normal inspection Mouth/Throat: dental tenderness, other (right side maxilary edema, warmth and erythema ) Neck: non-tender, full range of motion, supple, normal inspection Cardiovascular: regular rate, rhythm, no edema, no gallop, no JVD, no murmur Respiratory: chest non-tender, lungs clear, normal breath sounds, no respiratory distress, no accessory muscle use Gastrointestinal: normal bowel sounds, non tender, soft, no organomegaly, no pulsatile mass 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, no motor/sensory deficits, alert, normal mood/affect, oriented x 3 Skin: normal color, warm/dry (VANNESSA HU) Progress/Results/Core Measures Results/Orders Lab Results Laboratory Tests Test 08/07/22 07:30 08/07/22 10:27 Range/Units White Blood Count 7.8 4.3-11.0 10^3/uL Red Blood Count 4.27 3.80-5.11 10^6/uL Hemoglobin 13.7 11.5-16.0 g/dL Hematocrit 39 35-52 % Mean Corpuscular Volume 92 80-99 fL Mean Corpuscular Hemoglobin 32 25-34 pg Mean Corpuscular Hemoglobin Concent 35 32-36 g/dL Red Cell Distribution Width 11.7 10.0-14.5 % Platelet Count 192 130-400 10^3/uL Mean Platelet Volume 9.8 9.0-12.2 fL Immature Granulocyte % (Auto) 0 % Neutrophils (%) (Auto) 63 42-75 % Lymphocytes (%) (Auto) 28 12-44 % Monocytes (%) (Auto) 7 0-12 % Eosinophils (%) (Auto) 1 0-10 % Basophils (%) (Auto) 1 0-10 % Neutrophils # (Auto) 4.9 1.8-7.8 10^3/uL Lymphocytes # (Auto) 2.2 1.0-4.0 10^3/uL Monocytes # (Auto) 0.5 0.0-1.0 10^3/uL Eosinophils # (Auto) 0.1 0.0-0.3 10^3/uL Basophils # (Auto) 0.1 0.0-0.1 10^3/uL Immature Granulocyte # (Auto) 0.0 0.0-0.1 10^3/uL Sodium Level 139 135-145 MMOL/L Potassium Level 3.8 3.6-5.0 MMOL/L Chloride Level 106 98-107 MMOL/L Carbon Dioxide Level 28 21-32 MMOL/L Anion Gap 5 5-14 MMOL/L Blood Urea Nitrogen 16 7-18 MG/DL Creatinine 0.68 0.60-1.30 MG/DL Estimat Glomerular Filtration Rate 105 BUN/Creatinine Ratio 24 Glucose Level 91 70-105 MG/DL Calcium Level 8.5 8.5-10.1 MG/DL C-Reactive Protein High Sensitivity 1.82 H 0.00-0.50 MG/DL Prothrombin Time 12.6 12.2-14.7 SEC INR Comment 0.9 0.8-1.4 Activated Partial Thromboplast Time 33 24-35 SEC Lactic Acid Level 0.57 0.50-2.00 MMOL/L (CLEMENCIA POLO MD) Micro Results Microbiology 08/07/22 Blood Culture - Preliminary, Resulted No growth 08/07/22 Blood Culture - Preliminary, Resulted No growth (CLEMENCIA POLO MD) My Orders Orders - CLEMENCIA POLO MD Basic Metabolic Panel (08/07/22 07:18) Cbc With Automated Diff (08/07/22 07:18) Hs C Reactive Protein (08/07/22 07:18) Ed Iv/Invasive Line Start (08/07/22 07:18) Lactated Ringers (Lr 1000 Ml Iv Solution (08/07/22 07:30) Ondansetron Injection (Zofran Injectio (08/07/22 07:30) Fentanyl Inj (Sublimaze Injection) (08/07/22 07:30) Ct Maxillofacial W Wo (08/07/22 07:19) Iohexol Injection (Omnipaque 350 Mg/Ml 1 (08/07/22 07:45) Received Contrast (Hold Metformin- Contr (08/07/22 07:45) Ns (Ivpb) (Sodium Chloride 0.9% Ivpb Bag (08/07/22 07:45) Sodium Chloride Flush (Catheter Flush Sy (08/07/22 07:45) Fentanyl Inj (Sublimaze Injection) (08/07/22 09:00) Blood Culture (08/07/22 10:18) Protime With Inr (08/07/22 10:18) Partial Thromboplastin Time (08/07/22 10:18) Vital Signs Adult Sepsis Patie Q15M (08/07/22 10:18) Remove Rings In Anticipation O (08/07/22 10:18) Lactic Acid Analyzer (08/07/22 10:18) Clindamycin 900 Mg/50 Ml Ivpb (Cleocin P (08/07/22 10:30) Morphine Injection (Morphine Injection (08/07/22 10:25) (CLEMENCIA POLO MD) Medications Given in ED (CLEMENCIA POLO MD) Vital Signs/I&O (CLEMENCIA OPLO MD) Blood Pressure Mean: 78 Progress Progress Note #1: Time: 07:52 Progress Note Patient was interviewed and examined along with MS 3. I have concerned about the erythema and swelling extending far beyond the surgical site. This is different from the experience she had with her prior graft surgery. I am concerned about infection. Nausea was treated with Zofran and pain was treated with fentanyl. IV fluids are infusing. Labs are being obtained along with CT of the face for further evaluation. Pending results, we may contact the surgeon to discuss further care. Progress Note #2: Time: 10:25 Progress Note Patient has received multiple doses of fentanyl. She is requesting something more for pain. Morphine 5 mg IV was ordered. Labs were relatively unremarkable. CT revealed possible seroma or abscess with associated soft tissue changes. I discussed the situation with Dr. Verdugo. He recommends consulting the local maxillofacial surgeon. He is going to contact Dr. Hale to try to make some type of postoperative arrangement with him. In the meantime, we are drawing blood cultures and lactic acid as she has visibly worsened since arriving. Clindamycin 900 mg IV is being administered for initial antibiotic therapy. She has a penicillin allergy. Progress Note #3: Progress Note Dr. Hale presented to the ER to evaluate the patient. After antibiotics were complete she was sent to his office for him to drain the abscess under sedation with his equipment. His assistance was greatly appreciated. (CLEMENCIA POLO MD) Diagnostic Imaging Diagonstic Imaging: CT Plain Films/CT/US/NM/MRI: facial bones Comments CT viewed by me and report reviewed. See report below: NAME: ESME ESPINOSA [facility] REC#: [id number] PT STATUS: REG ER : 1970 PHYSICIAN: CLEMENCIA POLO MD ADMIT DATE: 08/07/22/ER Draft Date of Exam:08/07/22 CT MAXILLOFACIAL W WO CLINICAL INDICATION: Patient had bone grafts surgery 08/05/2022. Patient having pain and swelling and nausea. EXAM: Axial CT scan of maxillofacial structures performed without IV contrast. Sagittal and coronal reformatted images are created. Auto Exposure Controls were utilized during the CT exam to meet ALARA standards for radiation dose reduction. COMPARISON: None. FINDINGS: There is bone graft material seen in the region of the maxillary right incisor and canine regions. There is a tooth implant seen in the maxillary right medial incisor region. Possible residual tooth root seen in the maxillary right medial incisor region. There appears to be a bridge involving the maxillary left medial incisor tooth extending to the maxillary right canine tooth. There is a small amount of consolidation and air in the region of bone graft seen anterior to the maxillary right soft tissue region with slight expansile area of the bone graft seen. There is soft tissue thickening adjacent to the region. An infected fluid collection or seroma may be considered. This fluid collection in the region of the bone graft measures 9 mm x 18 mm x 10 mm (AP x Trans x CC). There are erosive lucent changes adjacent to the root of the maxillary left 3rd molar tooth. There is no significant lymphadenopathy. Paranasal sinuses and mastoid air cells are clear. The remainder of the extracranial soft tissue structures are unremarkable. Orbits and globes are unremarkable. IMPRESSION: 1: There are postop changes to the maxillary right incisor region with adjacent bone graft. There is an area consolidation and expansile appearance of the bone graft with a doubt of air within it. This may represent a seroma, but infectious fluid collection cannot be completely excluded. There is soft tissue swelling adjacent to the region. 2: There are erosions adjacent to the root of the maxillary left 3rd molar tooth. Dictated on workstation # [id number] Dict: 08/07/22 0833 Trans: 08/07/22 [id number] [id number] Interpreted by: KHARI GRACIA MD (CLEMENCIA POLO MD) Departure Impression Primary Impression: Postoperative infection Qualified Codes: T81.40XA - Infection following a procedure, unspecified, initial encounter Disposition: HOME, SELF-CARE Condition: Stable Departure-Patient Inst. Decision time for Depature: 11:45 (CLEMENCIA POLO MD) Referrals: NO,LOCAL PHYSICIAN (PCP) Primary Care Physician MATILDA SOMERS (Family) Primary Care Physician CASSI HALE DDS Patient Instructions: Wound Infection Add. Discharge Instructions: Please present directly to Dr. Hale's office. He will attempt drainage of the fluid collection. Defer to his instructions regarding medications and therapies upon discharge a fter procedure. Return to emergency room if you have worsening symptoms despite following discharge instructions. All discharge instructions reviewed with patient and/or family. Voiced understanding. Medical Student Attestation and Attending Note: I have personally interviewed and examined this patient along with Vannessa Hu, MS 3. I have reviewed student documentation including history, physical, and assessments. I agree with the documentation except where otherwise noted. Exam: General: Alert, oriented, no acute distress, well developed HEENT: Swelling of the right face including the upper lip, right cheek, and up toward the inferior periorbital region. There is associated erythema, especially along the zygomatic and upper maxilla region. There is tenderness in the area as well. Incision under the lip demonstrates no active drainage or bleeding. There is no overt abscess evident by external exam. There are mucous membrane changes consistent with oral surgery. Heart: Regular rate and rhythm without murmur Lungs: Clear to auscultation bilaterally with normal effort Neuropsych: Alert, oriented, no focal deficits Skin: Warm and dry without rashes, erythema as above (CLEMENCIA POLO MD) VANNESSA HU Aug 07, 2022 06:35 CLEMENCIA POLO MD Aug 07, 2022 07:57
[2022-08-07] MEDS ORDERED: LACTATED RINGERS 1,000 ML IV ONE (07:30)
[2022-08-07] MEDS ORDERED: fentaNYL INJ 100 MCG/2 ML AMP IVP ONE ×2 (07:30→09:00)
[2022-08-07] MEDS ORDERED: ONDANSETRON 4 MG/2 ML (SDV) Z0FRAN IVP ONE (07:30)
[2022-08-07 07:42] LABS: BASOPHILS # (AUTO) 0.1 10^3/uL (0.0-0.1); BASOPHILS % (AUTO) 1 % (0-10); EOSINOPHILS # (AUTO) 0.1 10^3/uL (0.0-0.3); EOSINOPHILS % (AUTO) 1 % (0-10); HEMATOCRIT 39 % (35-52); HEMOGLOBIN 13.7 g/dL (11.5-16.0); LYMPHOCYTES # (AUTO) 2.2 10^3/uL (1.0-4.0); LYMPHOCYTES % (AUTO) 28 % (12-44); MEAN CORPUSCULAR HEMOGLOBIN 32 pg (25-34); MEAN CORPUSCULAR HGB CONC 35 g/dL (32-36); MEAN CORPUSCULAR VOLUME 92 fL (80-99); MEAN PLATELET VOLUME 9.8 fL (9.0-12.2); MONOCYTES # (AUTO) 0.5 10^3/uL (0.0-1.0); MONOCYTES % (AUTO) 7 % (0-12); NEUTROPHILS # (AUTO) 4.9 10^3/uL (1.8-7.8); NEUTROPHILS % (AUTO) 63 % (42-75); PLATELET COUNT 192 10^3/uL (130-400); WHITE BLOOD COUNT 7.8 10^3/uL (4.3-11.0)
[2022-08-07] MEDS ORDERED: IOHEXOL 350 MG/ML 100 ML (OMNIPAQUE 350) VIAL IV ONE (07:45)
[2022-08-07] MEDS ORDERED: HOLD METFORMIN - RECEIVED CONTRAST 20 ML VIAL IV SCH (07:45)
[2022-08-07] MEDS ORDERED: CATHETER FLUSH 10 ML SYR IV PRN (07:45)
[2022-08-07] MEDS ORDERED: NS 100 ML (IVPB) BAG IV ONE (07:45)
[2022-08-07 07:52] LABS: POTASSIUM 3.8 MMOL/L (3.6-5.0)
[2022-08-07 07:54] LABS: CALCIUM 8.5 MG/DL (8.5-10.1)
[2022-08-07 07:58] LABS: CREATININE SERUM 0.68 MG/DL (0.60-1.30)
--- NOTE | 2022-08-07 08:59 | Diagnostic Imaging Report ---
CLINICAL INDICATION: Patient had bone grafts surgery 08/05/2022. Patient having pain and swelling and nausea. EXAM: Axial CT scan of maxillofacial structures performed without IV contrast. Sagittal and coronal reformatted images are created. Auto Exposure Controls were utilized during the CT exam to meet ALARA standards for radiation dose reduction. COMPARISON: None. FINDINGS: There is bone graft material seen in the region of the maxillary right incisor and canine regions. There is a tooth implant seen in the maxillary right medial incisor region. Possible residual tooth root seen in the maxillary right medial incisor region. There appears to be a bridge involving the maxillary left medial incisor tooth extending to the maxillary right canine tooth. There is a small amount of consolidation and air in the region of bone graft seen anterior to the maxillary right soft tissue region with slight expansile area of the bone graft seen. There is soft tissue thickening adjacent to the region. An infected fluid collection or seroma may be considered. This fluid collection in the region of the bone graft measures 9 mm x 18 mm x 10 mm (AP x Trans x CC). There are erosive lucent changes adjacent to the root of the maxillary left 3rd molar tooth. There is no significant lymphadenopathy. Paranasal sinuses and mastoid air cells are clear. The remainder of the extracranial soft tissue structures are unremarkable. Orbits and globes are unremarkable. IMPRESSION: 1: There are postop changes to the maxillary right incisor region with adjacent bone graft. There is an area consolidation and expansile appearance of the bone graft with a doubt of air within it. This may represent a seroma, but infectious fluid collection cannot be completely excluded. There is soft tissue swelling adjacent to the region. 2: There are erosions adjacent to the root of the maxillary left 3rd molar tooth. Dictated by: Dictated on workstation # [id number]
[2022-08-07] MEDS ORDERED: CLINDAMYCIN 600 MG/50 ML IVPB 50 ML IV ONE (10:15)
[2022-08-07] MEDS ORDERED: morphine INJ 10 MG/ML 1ML (SYR OR VIAL) IVP STA (10:25)
[2022-08-07] MEDS ORDERED: CLINDAMYCIN 900 MG/50 ML IVPB 50 ML IV ONE (10:30)
[2022-08-07 10:46] LABS: INR 0.9 (0.8-1.4); PROTHROMBIN TIME PATIENT 12.6 SEC (12.2-14.7)
[2022-08-07 11:50] VITALS: BP 100/58
== END 2022-08-07 11:51 | disposition home or self-care (01) ==
LOC: EDUNIT# 05:25 → ER 05:28
DX: T81.40XA Infection following a procedure, unspecified, initial encounter (principal); Z88.0 Allergy status to penicillin; Z88.6 Allergy status to analgesic agent; Z28.310 Unvaccinated for COVID-19
CPT/HCPCS: 36415; 70488; 80048; 83605; 85025; 85610; 85730; 86141; 87040